=== PATIENT | male | born 1965 | race African-American/Black ===

== ENCOUNTER 2021-04-11 09:51 | Emergency (ER) | payer BC ==
[~2021-04-11] VITALS: Ht 175.3 cm; Wt 118.1 kg
[2021-04-11 11:38] LABS: BASO # 0.1 x10^3/uL (0.0-0.2); BASO % 1 % (0-3); EOS # 0.1 x10^3/uL (0.0-0.7); EOS % 1 % (0-3); HEMATOCRIT 39.3 % (39.0-53.0); HEMOGLOBIN 13.7 g/dL (13.0-17.5); LYMPH # 1.6 x10^3/uL (1.0-4.8); LYMPH % 27 % (24-48); MEAN CORPUSCULAR HEMOGLOBIN 30 pg (25-35); MEAN CORPUSCULAR HGB CONC 35 g/dL (31-37); MEAN CORPUSCULAR VOLUME 86 fL (79-100); MONO # 0.3 x10^3/uL (0.0-1.1); MONO % 5 % (0-9); NEUT # 3.9 x10^3/uL (1.8-7.7); NEUT % 65 % (31-73); PLATELET COUNT 210 x10^3/uL (140-400); RED BLOOD COUNT 4.56 x10^6/uL (4.30-5.70); RED CELL DISTRIBUTION WIDTH 13.9 % (11.5-14.5)
--- NOTE | 2021-04-11 12:24 | RAD ---
Single AP view of the chest. Comparison: None. Indication: Shortness of air Findings: The heart is enlarged. There is no pneumothorax or effusion. No air space or interstitial disease. Impression: 1. Cardiomegaly. Electronically signed by: Primitivo Early MD (04/11/2021 12:21 PM) [id number]
--- NOTE | 2021-04-11 12:24 | RAD ---
Site ID: [id number] EXAMINATION: XR SHOULDER_LEFT 2+ VIEWS. HISTORY: 55 years Male left shoulder pain COMPARISON: None. FINDINGS: No fracture, dislocation or radiopaque foreign body. Mild degenerative changes in the acromial cla vicular joint with small osteophytes seen. IMPRESSION: Mild degenerative changes. Electronically signed by: Jose Boyd MD (04/11/2021 12:22 PM) [id number]
[2021-04-11 12:38] LABS: CALCIUM 9.1 mg/dL (8.5-10.1); CREATININE 1.2 mg/dL (0.7-1.3); GFR 75.5; POTASSIUM 4.2 mmol/L (3.5-5.1)
[2021-04-11 12:44] LABS: ALBUMIN/GLOBULIN RATIO 1.2 (1.0-1.7); TOTAL BILIRUBIN 0.9 mg/dL (0.2-1.0); TOTAL PROTEIN 7.4 g/dL (6.4-8.2)
--- NOTE | 2021-04-11 12:44 | PHYS DOC ---
Past Medical History Past Medical History: Hypertension Past Surgical History: Cholecystectomy Smoking Status: Never Smoker Alcohol Use: None General Adult EDM: Chief Complaint: UPPER EXTREMITY PAIN HPI: HPI: Patient is a 55 year old male who presents with 2 months of left arm heaviness and shoulder pain. States he has intermittent shortness of breath but he also has allergies. He states that he went outside and was working in the yard when he got slightly short of breath and was coughing. States he does not have any new or take any medication for this. Patient denies chest pain, dizziness, syncope, fever, abdominal pain, nausea, vomiting, diarrhea, extremity swelling. He states he is not short of breath at this time. He has no numbness or tingling. Patient rates his pain a 7 out of 10 shoulder denies a throbbing aching pain. Review of Systems: Review of Systems: Constitutional: Denies fever or chills. [] Eyes: Denies change in visual acuity. [] HENT: Denies nasal congestion or sore throat. [] Respiratory: Denies cough or + left intermittent shortness of breath. [] Cardiovascular: Denies chest pain or edema. [] GI: Denies abdominal pain, nausea, vomiting, bloody stools or diarrhea. [] : Denies dysuria. [] Musculoskeletal: Denies back pain or + left shoulder joint pain. + Left arm heaviness [] Integument: Denies rash. [] Neurologic: Denies headache, focal weakness or sensory changes. [] Endocrine: Denies polyuria or polydipsia. [] Lymphatic: Denies swollen glands. [] Psychiatric: Denies depression or anxiety. [] Heart Score: C/O Chest Pain: No HEART Score for Chest Pain: HEART Score for Chest Pain Response (Comments) Value History Slighlty/Non-Suspicious 0 ECG Normal 0 Age >45 - < 65 1 Risk Factors 1 or 2 Risk Factors 1 Troponin < Normal Limit 0 Total 2 Risk Factors: Risk Factors: DM, Current or recent (<one month) smoker, HTN, HLP, family history of CAD, obesity. Risk Scores: Score 0 - 3: 2.5% MACE over next 6 weeks - Discharge Home Score 4 - 6: 20.3% MACE over next 6 weeks - Admit for Clinical Observation Score 7 - 10: 72.7% MACE over next 6 weeks - Early Invasive Strategies Allergies: Allergies: Allergies Coded Allergies Type Severity Reaction Last Updated Verified codeine Allergy Intermediate 04/11/21 Yes Physical Exam: PE: Constitutional: Well developed, well nourished, no acute distress, non-toxic appearance. [] HENT: Normocephalic, atraumatic, bilateral external ears normal, oropharynx moist, no oral exudates, nose normal. [] Eyes: PERRLA, EOMI, conjunctiva normal, no discharge. [] Neck: Normal range of motion, no tenderness, supple, no stridor. [] Cardiovascular:Heart rate regular rhythm, no murmur [] Lungs & Thorax: Bilateral breath sounds clear to auscultation [] Abdomen: Bowel sounds normal, soft, no tenderness, no masses, no pulsatile masses. [] Skin: Warm, dry, no erythema, no rash. [] Back: No tenderness, no CVA tenderness. [] Extremities: No tenderness, no cyanosis, no clubbing, ROM intact, no edema. [] Neurologic: Alert and oriented X 3, normal motor function, normal sensory function, no focal deficits noted. [] Psychologic: Affect normal, judgement normal, mood normal. [] Normal physical exam Current Patient Data: Labs: Laboratory Tests Test 04/11/21 11:28 04/11/21 12:20 White Blood Count 6.0 x10^3/uL (4.0-11.0) Red Blood Count 4.56 x10^6/uL (4.30-5.70) Hemoglobin 13.7 g/dL (13.0-17.5) Hematocrit 39.3 % (39.0-53.0) Mean Corpuscular Volume 86 fL (79-100) Mean Corpuscular Hemoglobin 30 pg (25-35) Mean Corpuscular Hemoglobin Concent 35 g/dL (31-37) Red Cell Distribution Width 13.9 % (11.5-14.5) Platelet Count 210 x10^3/uL (140-400) Neutrophils (%) (Auto) 65 % (31-73) Lymphocytes (%) (Auto) 27 % (24-48) Monocytes (%) (Auto) 5 % (0-9) Eosinophils (%) (Auto) 1 % (0-3) Basophils (%) (Auto) 1 % (0-3) Neutrophils # (Auto) 3.9 x10^3/uL (1.8-7.7) Lymphocytes # (Auto) 1.6 x10^3/uL (1.0-4.8) Monocytes # (Auto) 0.3 x10^3/uL (0.0-1.1) Eosinophils # (Auto) 0.1 x10^3/uL (0.0-0.7) Basophils # (Auto) 0.1 x10^3/uL (0.0-0.2) Sodium Level 143 mmol/L (136-145) Potassium Level 4.2 mmol/L (3.5-5.1) Chloride Level 106 mmol/L (98-107) Carbon Dioxide Level 30 mmol/L (21-32) Anion Gap 7 (6-14) Blood Urea Nitrogen 13 mg/dL (8-26) Creatinine 1.2 mg/dL (0.7-1.3) Estimated GFR (Cockcroft-Gault) 75.5 BUN/Creatinine Ratio 11 (6-20) Glucose Level 127 mg/dL (70-99) H Calcium Level 9.1 mg/dL (8.5-10.1) Total Bilirubin Pending Aspartate Amino Transferase (AST) Pending Alanine Aminotransferase (ALT) Pending Alkaline Phosphatase Pending Total Protein Pending Albumin Pending Albumin/Globulin Ratio Pending Laboratory Tests 04/11/21 11:28 Laboratory Tests 04/11/21 12:20 Vital Signs: Vital Signs Date Time Temp Pulse Resp B/P (MAP) Pulse Ox O2 Delivery O2 Flow Rate FiO2 04/11/21 10:40 98.3 96 16 173/87 (115) 96 Room Air 98.3 EKG: EK and read by Dr. Shankar as sinus rhythm with an incomplete right bundle branch block and no STEMI [] Radiology/Procedures: Radiology/Procedures: [] Impression: [facility] [address] [place] [address] IMAGING REPORT Signed PATIENT: GEOVANY EMMANUEL ACCOUNT: [id number] : 1965 LOCATION: ER AGE: 55 SEX: M EXAM STATUS: REG ER ORD. PHYSICIAN: NAIMA RAOMN APRN REASON: soa PATIENT READY @ 1135 PROCEDURE: PORTABLE CHEST 1V Single AP view of the chest. Comparison: None. Indication: Shortness of air Findings: The heart is enlarged. There is no pneumothorax or effusion. No air space or interstitial disease. Impression: 1. Cardiomegaly. Electronically signed by: Primitivo Early MD (04/11/2021 12:21 PM) [id number] DICTATED and SIGNED BY: PRIMITIVO EARLY MD DATE: 04/11/21 [id number] [facility] [address] [place] [address] IMAGING REPORT Signed PATIENT: GEOVANY EMMANUEL ACCOUNT: [id number] : 1965 LOCATION: ER AGE: 55 SEX: M EXAM STATUS: REG ER ORD. PHYSICIAN: NAIMA RAMON APRN REASON: soa PNR [id number] PROCEDURE: SHOULDER 2+V LEFT Site ID: [id number] EXAMINATION: XR SHOULDER_LEFT 2+ VIEWS. HISTORY: 55 years Male left shoulder pain COMPARISON: None. FINDINGS: No fracture, dislocation or radiopaque foreign body. Mild degenerative changes in the acromial clavicular joint with small osteophytes seen. IMPRESSION: Mild degenerative changes. Electronically signed by: Humble Boyd MD (04/11/2021 12:22 PM) [id number] DICTATED and SIGNED BY: HUMBLE BOYD MD DATE: 04/11/21 [id number] Course & Med Decision Making: Course & Med Decision Making Pertinent Labs and Imaging studies reviewed. (See chart for details) See HPI. Alert and oriented x4. Ambulatory with a steady gait. Speaks in full clear sentences. Full range of motion of all joints there is no joint laxity, swelling, redness, tenderness. Full strength and certified court interpreter. No extremity swelling. Radial pulse strong are present. Cap refill less than 2 seconds. Signs are within normal limits. Lungs are clear all station in all lobes. Chest x-ray shows no acute findings except for there is some cardiomegaly. EKG shows a sinus rhythm but there is no STEMI. Heart score is a 2. Shoulder x-ray shows arthritis. [] Eladio Disclaimer: Eladio Disclaimer: This electronic medical record was generated, in whole or in part, using a voice recognition dictation system. Departure Departure Impression: Primary Impression: Heaviness of upper extremity Additional Impressions: Shoulder pain Qualified Codes: M25.512 - Pain in left shoulder Arthritis Shortness of breath Disposition: HOME / SELF CARE / HOMELESS Condition: STABLE Referrals: Moses KRUGER MD (PCP) CONNOR JETT MD Patient Instructions: Arthritis, Degenerative-Brief, Pain, Neuropathic, Shortness of Breath Additional Instructions: Follow-up with your primary care provider. I will also refer you to an orthopedic that you can follow-up for your shoulder. Take medication as p rescribed and with food. You can try different [id number] arthritis creams for your shoulder. If you shortness of breath worsens any become in respiratory distress or you have chest pain return emergency room. Scripts Albuterol Sulfate (PROAIR HFA INHALER) 8.5 Gm Hfa.aer.ad 1 PUFF INH PRN Q6HRS PRN for SHORTNESS OF BREATH, #1 EACH 0 Refills Prov: NAIMA RAMON APRN 04/11/21 Tramadol Hcl (TRAMADOL HCL) 50 Mg Tablet 50 MG PO Q6HRS PRN for PAIN, #20 TAB Prov: NAIMA RAMON APRN 04/11/21 Methylprednisolone (MEDROL) 4 Mg Tab.ds.pk 1 PKG PO UD, #1 PKG Prov: NAIMA RAMON APRN 04/11/21 NAIMA RAMON APRN Apr 11, 2021 12:44
[2021-04-11] MEDS ORDERED: METH4TAB2 PO (13:45)
[2021-04-11] MEDS ORDERED: TRAM50TA PO (13:45)
[2021-04-11] MEDS ORDERED: ALBU2.5V8 INH (13:45)
[2021-04-11 14:01] VITALS: BP 150/84
--- NOTE | 2021-04-11 17:03 | EKG ---
[facility] [address] [place] [address] Test Date: 2021-04-11 Test Time: 11:08:03 Pat Name: GEOVANY EMMANUEL Department: Room: Gender: M [employer]: : 1965 Requested By: NAIMA RAMON Order Number: [id number] Reading MD: Measurements Intervals [place] Rate: 79 P: 56 FL: 158 QRS: 4 QRSD: 92 T: 82 QT: 356 QTc: 414 Interpretive Statements SINUS RHYTHM INCOMPLETE RIGHT BUNDLE BRANCH BLOCK T ABNORMALITY IN HIGH LATERAL LEADS ABNORMAL ECG RI6.01 No previous ECG available for comparison
== END 2021-04-11 14:23 | disposition home or self-care (01) ==
LOC: ER 09:51
DX: M25.512 Pain in left shoulder (principal); R06.02 Shortness of breath; R05 Cough; I10 Essential (primary) hypertension
CPT/HCPCS: 36415; 71045; 73030; 80053; 83880; 84484; 85025; 93005; 99285-25